=== PATIENT | female | born 1955 | race Caucasian/White ===

== ENCOUNTER 2025-05-22 18:24 | Emergency (ER) | payer OTHER, SELFPAY ==
[2025-05-22 18:26] VITALS: BP 168/117
[2025-05-22 19:05] VITALS: BP 148/64; BMI 27.2
--- NOTE | 2025-05-22 19:19 | ED.GENMED ---
History of Present Illness
General
Chief Complaint: Facial Problem
Source: patient
Time Seen by Provider: 05/22/25 19:11
History of Present Illness
History of Present Illness:
69-year-old female with past medical history of previous colon cancer presenting to the ER for evaluation after she excellently tripped and stumbled into a wall striking her forehead and nose onto the wall, no LOC, no vomiting the patient does
report a mild to moderate headache. She is not on any anticoagulant medications. She did sustain abrasions to the frontal scalp and lateral nasal bridge. Unknown last tetanus. Denies any extremity related injury or concern.
Past History
Past History
ED Past Medical History: Cancer
ED Past Surgical History: None
Social History
Tobacco: Non-smoker
Alcohol: None
Drug: None
Personal:
Living: with family
Review of Systems
Review of Systems
All Other Systems: ROS reviewed and negative except as documented in HPI and ROS
Phy Exam
Physical Exam
Physical Exam:
GENERAL: Alert , in no apparent distress
EYE: conjunctiva clear
Head: Superficial abrasion to the mid forehead and left lateral nasal bridge
NECK: Supple, no midline tenderness, full range of motion without pain
ENT: mmm.
LUNGS: no acute respiratory distress
NEUROLOGICAL: Alert and oriented
SKIN: Warm and dry, skin intact.
MUSCULOSKELETAL: well perfused.
PSYCH: Normal and appropriate interaction.
Scores
Heart Failure Risk
Heart Failure Risk Score: Not Applicable
Heart Score for Chest Pain Patients
STEMI patient?: Not applicable
Withdrawal Assessment of Alcohol
Withdrawal Assessment Completed?: Not applicable
Course
Orders/Labs/Results
Orders:
Orders
05/22/25 19:15
CT Facial Bones W/o Iv Contras Urgent
Comment:
Reason For Exam: fall, head injury
CT Head W/o Iv Contrast Urgent
Comment:
Reason For Exam: fall, head injury
Acetaminophen [Tylenol] 1,000 mg PO NOW STA
Tetanus/Diphth/Acelpertussis [Adacel] 0.5 ml IM .ONCE ONE
Vital Signs
Initial and Last Documented VS:
Initial Vital Signs
Temp Pulse Resp BP Pulse Ox
98.5 F 94 16 168/117 97
05/22/25 18:26 05/22/25 18:26 05/22/25 18:26 05/22/25 18:26 05/22/25 18:26
Last Documented Vital Signs
Temp Pulse Resp BP Pulse Ox
98.5 F 81 18 137/78 99
05/22/25 18:26 05/22/25 21:05 05/22/25 21:05 05/22/25 21:05 05/22/25 21:05
MDM/Problems Addressed
Differential Diagnosis Includes:
Abrasions
Concussion
Contusion
ICH
Facial fracture
MDM/Problems Addressed:
69-year-old female presenting to the ER for evaluation following a fall resulting in mild to moderate head injury. No LOC, no thinners but patient does report headache. Will obtain CT scan to further evaluate although my suspicion for intracranial
pathology is quite low. Tylenol ordered for headache. Will also update patient's tetanus.
*Radiology
Radiology exam reviewed: radiology read reviewed
*Pulse Oximetry
SaO2: 97
Oxygen Mode of Delivery: Room air
Patient hypoxic: no
*Critical Care Note
Total Time (30-74mins, 75-104mins- exclusive of procedures): Not Applicable
Patient Management
Escalation/DeEscalation of care consider admission/obs:
CT of the head and facial bones negative for any acute pathologies. Patient stable for discharge home and aware of return precautions.
ED Attending Note
-
Portions of this chart may have been created with voice recognition software.� Occasional wrong word or��sound alike� substitutions may have occurred due to the inherent limitations of voice recognition software.
Discharge Plan
Departure
Patient Disposition: Home (Routine Discharge)
Date of Disposition: 05/22/25
Time of Disposition: 21:39
Patient with high blood pressure during this ER visit?: Yes
Discharge Problem:
Accidental fall, Contusion of face
Instructions: Contusion
Referrals:
Candelaria Ly DO [Family Provider, Family Practice]
Interventions
Interventions:
*Risk Screen - Suicide Last Done: 05/22/25 18:28
*General Assessment Last Done: 05/22/25 19:05
*Neglect/Abuse Screening Last Done: 05/22/25 18:28
*ED- Fall Risk Assessment Last Done: 05/22/25 19:05
*ED COVID-19 Vaccine History Last Done: 05/22/25 19:05
*ED Influenza Vaccine History Last Done: 05/22/25 19:21
*Nursing Disposition Last Done: 05/22/25 21:45
ED- Neurological Assessment Last Done: 05/22/25 19:05
ED-Skin Assessment Last Done: 05/22/25 19:05
Discharge Date and Time
Discharge Date/Time: 05/22/25 21:45
Print Language: SAMMARINESE
[2025-05-22] MEDS: TYLENOL 1000 MG PO (19:26)
[2025-05-22] MEDS: ADACEL 0.5 ML IM (19:27)
[2025-05-22 21:05] VITALS: BP 137/78
== END 2025-05-22 21:45 | disposition home or self-care (01) ==
LOC: EMR 18:24
PROVIDERS: EMERGENCY PHYSICIAN Student in an Organized Health Care Education/Training Program; FAMILY PHYSICIAN Family Medicine
DX: S00.83XA Contusion of other part of head, initial encounter (principal); S00.31XA Abrasion of nose, initial encounter; W01.198A Fall on same level from slipping, tripping and stumbling with subsequent striking against other object, initial encounter; Z85.038 Personal history of other malignant neoplasm of large intestine; Z23 Encounter for immunization
CPT/HCPCS: 90471; 99284; 70450; 70486; 90715